=== PATIENT | female | born 1940 | race African-American/Black ===

== ENCOUNTER 2020-03-13 09:04 | Observation (INO) ==
[2020-03-13 10:37] LABS: Basophils % 0.4 % (0.0-0.8); Eosinophils # 0.1 10*3/uL (0.0-0.87); Eosinophils % 1.1 % (0.00-10.9); Hematocrit 38.2 VOL% (35.7-47.0); Hemoglobin 11.5 GM/DL (12.0-16.0); Immature Granulocytes % 0.4 %; Immature Granulocytes Absolute 0.03 #; Lymphocytes # 1.2 10*3/uL (1.4-4.0); Mean Corpuscular HGB Conc 30.1 GM/DL (32-36); Mean Platelet Volume 9.3 FL (9.6-12.0); Monocytes % 6.3 % (1.7-12.7); Neutrophils % 76.8 % (38.7-73.9); Platelet Count 265 T/CUMM (130-400); Red Blood Count 4.44 MC/CUMM (3.8-5.5); Red Cell Distribution Width 14.6 % (9.3-17.3); White Blood Count 8.1 T/CUMM (4-12)
[2020-03-13 10:48] LABS: INR 1.1; PT Patient Result 11.4 SECS (9.8-11.9)
[2020-03-13 10:54] LABS: Albumin 3.6 G/DL (3.4-5.0); Bilirubin,Total 0.5 MG/DL (0.2-1.0); Calcium 9.7 MG/DL (8.5-10.1); Osmolality,Calculated 280.7 MOS/KG (273-304); Total Protein 8.7 G/DL (6.4-8.3)
[2020-03-13] MEDS ORDERED: GLUCAGON 1 MG VIAL IM PRN (14:45)
[2020-03-13] MEDS ORDERED: DEXTROSE 50% 25 GM/50 ML VIAL IV PRN (14:45)
[2020-03-13] MEDS: SODIUM CHLORIDE 0.9% 1,000 ML IV SCH (16:56)
[2020-03-13] MEDS: clonazePAM 0.5 MG TABLET PO SCH (20:27)
[2020-03-13] MEDS ORDERED: lisinopriL 20 MG TABLET PO SCH (21:00)
[2020-03-14] MEDS: SODIUM CHLORIDE 0.9% 1,000 ML IV SCH ×2 (01:12→13:19)
[2020-03-14 04:52] LABS: Basophils % 0.7 % (0.0-0.8); Eosinophils # 0.3 10*3/uL (0.0-0.87); Eosinophils % 5.4 % (0.00-10.9); Hematocrit 30.8 VOL% (35.7-47.0); Immature Granulocytes % 0.2 %; Immature Granulocytes Absolute 0.01 #; Lymphocytes # 1.6 10*3/uL (1.4-4.0); Lymphocytes % 25.5 % (21.3-54.2); Mean Corpuscular HGB Conc 30.5 GM/DL (32-36); Mean Platelet Volume 9.8 FL (9.6-12.0); Monocytes % 9.9 % (1.7-12.7); Neutrophils % 58.3 % (38.7-73.9); Platelet Count 180 T/CUMM (130-400); Red Cell Distribution Width 14.5 % (9.3-17.3); White Blood Count 6.1 T/CUMM (4-12)
[2020-03-14 05:15] LABS: Hemoglobin 9.4 GM/DL (12.0-16.0); Red Blood Count 3.54 MC/CUMM (3.8-5.5)
[2020-03-14 05:22] LABS: Calcium 8.4 MG/DL (8.5-10.1); Osmolality,Calculated 290.1 MOS/KG (273-304); Risk Ratio 4.05; VLDL CHOLESTEROL 37.6 MG/DL
[2020-03-14] MEDS: LEVOTHYROXINE 25 MCG TABLET PO SCH (06:08)
[2020-03-14] MEDS: clonazePAM 0.5 MG TABLET PO SCH ×2 (08:58→21:28)
[2020-03-14] MEDS: ESCITALOPRAM 10 MG TABLET PO SCH (08:58)
[2020-03-14] MEDS: amLODIPine 5 MG TABLET PO SCH (08:58)
[2020-03-14] MEDS: lisinopriL 20 MG TABLET PO SCH (08:59)
[2020-03-15 04:15] LABS: Basophils % 0.7 % (0.0-0.8); Eosinophils # 0.5 10*3/uL (0.0-0.87); Eosinophils % 8.6 % (0.00-10.9); Hematocrit 28.7 VOL% (35.7-47.0); Hemoglobin 8.6 GM/DL (12.0-16.0); Immature Granulocytes % 0.5 %; Immature Granulocytes Absolute 0.03 #; Lymphocytes # 1.4 10*3/uL (1.4-4.0); Lymphocytes % 24.4 % (21.3-54.2); Mean Corpuscular Volume 86.7 FL (87-102); Mean Platelet Volume 9.8 FL (9.6-12.0); Monocytes % 9.7 % (1.7-12.7); Neutrophils % 56.1 % (38.7-73.9); Platelet Count 183 T/CUMM (130-400); Red Blood Count 3.31 MC/CUMM (3.8-5.5); Red Cell Distribution Width 14.6 % (9.3-17.3); White Blood Count 5.8 T/CUMM (4-12)
[2020-03-15 04:41] LABS: Calcium 8.2 MG/DL (8.5-10.1); Osmolality,Calculated 289.1 MOS/KG (273-304); Thyroid Stimulating Hormone 3.9 uIU/ml (0.358-3.74)
[2020-03-15] MEDS: SODIUM CHLORIDE 0.9% 1,000 ML IV SCH ×2 (05:21→09:11)
[2020-03-15] MEDS ORDERED: GLYCOPYRROLATE 0.4 MG/2 ML VIAL IM ONE (07:00)
[2020-03-15] MEDS ORDERED: PROMETHAZINE 25 MG/1 ML VIAL IM ONE (07:00)
[2020-03-15] MEDS ORDERED: MEPERIDINE 50 MG/1 ML VIAL IM ONE (07:00)
[2020-03-15] MEDS: LEVOTHYROXINE 25 MCG TABLET PO SCH (07:22)
[2020-03-15] MEDS ORDERED: LIDOCAINE 1% 20 ML VIAL MISC INJ ONE (07:30)
[2020-03-15] MEDS ORDERED: MIDAZOLAM 2 MG/2 ML VIAL IV ONE (07:30)
[2020-03-15] MEDS ORDERED: LIDOCAINE 2% VISCOUS 100 ML BOTTLE SWISH/SPIT ONE (07:30)
[2020-03-15] MEDS ORDERED: LIDOCAINE 2% 20 ML VIAL RESP TX ONE (07:30)
[2020-03-15] MEDS ORDERED: flumazeniL 0.5 MG/5 ML VIAL IV ONE (10:00)
[2020-03-15] MEDS: ESCITALOPRAM 10 MG TABLET PO SCH (10:06)
[2020-03-15] MEDS: amLODIPine 5 MG TABLET PO SCH (10:06)
[2020-03-15] MEDS: lisinopriL 20 MG TABLET PO SCH (10:06)
[2020-03-15] MEDS: clonazePAM 0.5 MG TABLET PO SCH ×2 (10:06→20:52)
[2020-03-15 17:08] LABS: Hematocrit 36.6 VOL% (35.7-47.0)
[2020-03-15 17:44] LABS: Hemoglobin 10.2 GM/DL (12.0-16.0)
[2020-03-16 02:01] LABS: Hematocrit 29.8 VOL% (35.7-47.0); Hemoglobin 9.1 GM/DL (12.0-16.0)
[2020-03-16] MEDS: LEVOTHYROXINE 25 MCG TABLET PO SCH (06:12)
[2020-03-16] MEDS: SODIUM CHLORIDE 0.9% 1,000 ML IV SCH ×2 (07:08→17:07)
[2020-03-16 08:13] LABS: Hematocrit 30.3 VOL% (35.7-47.0); Hemoglobin 9.2 GM/DL (12.0-16.0)
[2020-03-16] MEDS: ESCITALOPRAM 10 MG TABLET PO SCH (08:38)
[2020-03-16] MEDS: amLODIPine 5 MG TABLET PO SCH (08:39)
[2020-03-16] MEDS: lisinopriL 20 MG TABLET PO SCH (08:39)
[2020-03-16] MEDS: clonazePAM 0.5 MG TABLET PO SCH (08:39)
[2020-03-16 11:51] VITALS: BP 104/59
== END 2020-03-16 17:06 | disposition home or self-care (01) ==
LOC: N.ED 09:04 → N.EDINP 09:04 → SUATTDRO 15:45 → N.5E 16:25
PROVIDERS: ADMIT Internal Medicine; ATTEND Internal Medicine